=== PATIENT | female | born 1995 | race Caucasian/White ===

== ENCOUNTER 2018-05-07 17:21 | Emergency (ER) | payer BC ==
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
== END 2018-05-07 18:01 | disposition home or self-care (01) ==
LOC: MW.ED 17:21
DX: O9A.213 Injury, poisoning and certain other consequences of external causes complicating pregnancy, third trimester (principal); S10.91XA Abrasion of unspecified part of neck, initial encounter; Y04.8XXA Assault by other bodily force, initial encounter; Z3A.38 38 weeks gestation of pregnancy
CPT/HCPCS: 99284

== ENCOUNTER 2018-05-07 17:52 | Observation (INO) | payer BC ==
[2018-05-07 21:41] LABS: CHLORIDE,CL 104 mmol/L (98-107); SODIUM,NA 137 mmol/L (136-145)
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
[2018-05-07] MEDS ORDERED: Acetaminophen 500 MG Tab PO PRN (23:08)
[2018-05-07] MEDS ORDERED: hydrOXYzine Pamoate 25 MG Cap PO ONE (23:08)
--- NOTE | 2018-05-08 09:59 | PCM.SN ---
- Free Text/Narrative Note: See note in OB [facility]
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
== END 2018-05-08 13:05 | disposition home or self-care (01) ==
LOC: MW.OBCHECK 17:52 → MW.OB 17:56 → MW.OBCHECK 20:37 → MW.OB 21:14
PROVIDERS: ADMIT Obstetrics & Gynecology; ATTEND Obstetrics & Gynecology
DX: O9A.213 Injury, poisoning and certain other consequences of external causes complicating pregnancy, third trimester (principal); T14.90XA Injury, unspecified, initial encounter; O99.89 Other specified diseases and conditions complicating pregnancy, childbirth and the puerperium; N13.30 Unspecified hydronephrosis; O99.613 Diseases of the digestive system complicating pregnancy, third trimester; K82.0 Obstruction of gallbladder; Z3A.37 37 weeks gestation of pregnancy; Y09 Assault by unspecified means; Y04.2XXA Assault by strike against or bumped into by another person, initial encounter
CPT/HCPCS: 36415; 59025; 76700; 76819; 80053; 81003; 85027; 85460; A9270; G0378

== ENCOUNTER 2018-05-25 00:08 | Inpatient (IN) | payer BC ==
[2018-05-25] MEDS ORDERED: Sodium Chloride 0.9% 10 ML Syringe FLUSH PRN (00:43)
[2018-05-25] MEDS ORDERED: Nalbuphine 10 MG/1 ML Vial IVPUSH PRN (00:43)
[2018-05-25] MEDS ORDERED: Lidocaine 1% 50 ML MDV INJECT PRN (00:43)
[2018-05-25] MEDS ORDERED: Terbutaline 1 MG/ML SDV SUBCUT PRN (00:43)
[2018-05-25] MEDS ORDERED: Misoprostol 200 MCG Tab PO PRN (00:43)
[2018-05-25] MEDS ORDERED: Carboprost Tromethamine 250 MCG/1 ML Amp IM PRN (00:43)
[2018-05-25] MEDS ORDERED: Water For Irrigation,Sterile 1,000 ML Container IRR PRN (00:43)
[2018-05-25] MEDS ORDERED: Methylergonovine 0.2 MG/1 ML Amp IM PRN (00:43)
[2018-05-25] MEDS ORDERED: Butorphanol 1 MG/ML SDV IVPUSH PRN (00:43)
[2018-05-25] MEDS ORDERED: Tranexamic Acid 1,000 MG in Sodium Chloride 0.9% 100 ML IV PRN (00:43)
[2018-05-25] MEDS ORDERED: Oxytocin/0.9 % Sodium Chloride 30 UNIT/500 ML BAG IV SCH ×2 (00:45)
[2018-05-25] MEDS: Lactated Ringers 1,000 ML IV SCH ×2 (01:15→11:40)
[2018-05-25] MEDS ORDERED: fentaNYL 100 MCG/2 ML SDV ONE (09:44)
[2018-05-25] MEDS ORDERED: Docusate Sodium 100 MG Cap PO PRN (11:02)
[2018-05-25] MEDS ORDERED: Witch Hazel Medicated Pads 40/Jar TOP PRN (11:02)
[2018-05-25] MEDS ORDERED: Ibuprofen 400 MG Tab PO PRN (11:02)
[2018-05-25] MEDS ORDERED: Bisacodyl 10 MG Supp RECTAL PRN (11:02)
[2018-05-25] MEDS ORDERED: Acetaminophen 500 MG Tab PO PRN ×2 (11:02)
[2018-05-25] MEDS ORDERED: Benzocaine/Menthol 20%-0.5% Spray 78 GM Cannister TOP PRN (11:02)
[2018-05-25] MEDS ORDERED: oxyCODONE 5 MG Tab PO PRN (11:02)
[2018-05-25] MEDS ORDERED: Lanolin 100% Cream 7 GM Tube TOP PRN (11:02)
--- NOTE | 2018-05-25 11:07 | PCM.DEL ---
L & D Note - General Info Date of Service: 05/25/18 Mother's Due Date: 05/28/18 - Delivery Note Labor: Spontaneous Delivery Outcome: Livebirth Presentation: Right Occiput Anterior (AILIN) Nuchal Cord: None Anesthesia Type: Epidural Amniotic Fluid Description: Clear Episiotomy Type: None Laceration: None Placenta: Intact Cord: 3 Vessels Estimated Blood Loss: 300 Resuscitation Needed: No Score 1 min: 9 Score 5 min: 9 Delivery Comments (Free Text/Narrative):: Live male delivered at 1049am , weight 3220g , 9/9 - General Info Date of Service: 05/25/18 - Patient Data Weight - Most Recent: 103.873 kg Lab Results Last 24 Hours: Laboratory Results - last 24 hr 05/25/18 05/25/18 Range/Units 01:00 01:00 WBC 8.99 (4.0-11.0) K/uL RBC 3.82 L (4.30-5.90) M/uL Hgb 10.9 L (12.0-16.0) g/dL Hct 33.4 L (36.0-46.0) % MCV 87.4 (80.0-98.0) fL MCH 28.5 (27.0-32.0) pg MCHC 32.6 (31.0-37.0) g/dL RDW Std Deviation 38.8 (28.0-62.0) fl RDW Coeff of Gage 13 (11.0-15.0) % Plt Count 249 (150-400) K/uL MPV 10.60 (7.40-12.00) fL Blood Type O POSITIVE Antibody Screen NEGATIVE Med Orders - Current: Current Medications Butorphanol Tartrate (Stadol) 1 mg IVPUSH ASDIRECTED PRN PRN Reason: Pain Carboprost Tromethamine (Hemabate Ds) 250 mcg IM ASDIRECTED PRN PRN Reason: Post Hemorrhage Lactated Ringer's (Ringers, Lactated) 1,000 mls @ 150 mls/hr IV ASDIRECTED MORELIA Last Admin: 05/25/18 01:15 Dose: 150 mls/hr Oxytocin/Sodium Chloride (Oxytocin 30 Unit/500 Ml-Ns) 30 unit in 500 mls @ 999 mls/hr IV TITRATE MORELIA Oxytocin/Sodium Chloride (Oxytocin 30 Unit/500 Ml-Ns) 30 unit in 500 mls @ 2 mls/hr IV TITRATE MORELIA; Protocol Last Titration: 05/25/18 09:12 Dose: 8 munits/min, 8 mls/hr Tranexamic Acid 1,000 mg/ (Sodium Chloride) 110 mls @ 660 mls/hr IV ONETIME PRN PRN Reason: Bleeding Lidocaine HCl (Xylocaine 1%) 50 ml INJECT ONETIME PRN PRN Reason: Laceration repair Methylergonovine Maleate (Methergine) 0.2 mg IM ASDIRECTED PRN PRN Reason: Post Hemorrhage Misoprostol (Cytotec) 200 mcg PO ONETIME PRN PRN Reason: Post Hemorrhage Nalbuphine HCl (Nubain) 10 mg IVPUSH ASDIRECTED PRN PRN Reason: Pain (severe 7-10) Sodium Chloride (Saline Flush) 10 ml FLUSH ASDIRECTED PRN PRN Reason: Keep Vein Open Last Admin: 05/25/18 01:23 Dose: 10 ml Sterile Water (Sterile Water For Irrigation) 1,000 ml IRR ASDIRECTED PRN PRN Reason: delivery Terbutaline Sulfate (Brethine) 0.25 mg SUBCUT ASDIRECTED PRN PRN Reason: Tacysystole Discontinued Medications Fentanyl (Sublimaze) Confirm Administered Dose 100 mcg .ROUTE .STK-MED ONE Stop: 05/25/18 09:45 Fentanyl/Bupivacaine HCl (Nbjxeezd-Cogsw-Xj 2 Mcg/Ml-0.125%) Confirm Administered Dose 100 mls @ as directed .ROUTE .STK-MED ONE Stop: 05/25/18 09:45 - Problem List & Annotations (1) Vaginal delivery SNOMED Code(s): 197016314 Code(s): O80 - ENCOUNTER FOR FULL-TERM UNCOMPLICATED DELIVERY Status: Acute Current Visit: Yes - Problem List Review Problem List Initiated/Reviewed/Updated: Yes - My Orders Last 24 Hours: My Active Orders 05/25/18 00:43 Patient Status [ADT] Routine Bedrest Bathroom Privileges [RC] ASDIRECTED Communication Order [RC] ASDIRECTED Communication Order [RC] ASDIRECTED Heart Tones [RC] CONTINUOUS Non Stress Test [RC] PER UNIT ROUTINE May Shower [RC] ASDIRECTED Notify Provider [RC] PRN Notify Provider [RC] PRN Notify Provider [RC] STAT Oxygen Therapy [RC] ASDIRECTED Up ad Kiki [RC] ASDIRECTED Vaginal Exam [RC] PRN Vaginal Exam [RC] PRN Vital Signs [RC] PER UNIT ROUTINE Vital Signs [RC] PER UNIT ROUTINE Butorphanol [Stadol] 1 mg IVPUSH ASDIRECTED PRN Carboprost Tromethamine [Hemabate DS] 250 mcg IM ASDIRECTED PRN Lidocaine 1% [Xylocaine 1%] 50 ml INJECT ONETIME PRN Methylergonovine [Methergine] 0.2 mg IM ASDIRECTED PRN Nalbuphine [Nubain] 10 mg IVPUSH ASDIRECTED PRN Sodium Chloride 0.9% [Saline Flush] 10 ml FLUSH ASDIRECTED PRN Terbutaline [Brethine] 0.25 mg SUBCUT ASDIRECTED PRN Tranexamic Acid [Cyklokapron] 1,000 mg Sodium Chloride 0.9% [Normal Saline] 100 ml IV ONETIME Water For Irrigation,Sterile [Sterile Water for Irrigation] 1,000 ml IRR ASDIRECTED PRN miSOPROStol [Cytotec] 200 mcg PO ONETIME PRN Scalp Electrode [WOMSER] Per Unit Routine Peripheral IV Insertion Adult [OM.PC] Routine 05/25/18 00:45 Lactated Ringers [Ringers, Lactated] 1,000 ml IV ASDIRECTED Oxytocin/0.9 % Sodium Chloride [Oxytocin 30 Unit/500 ML-NS] 30 unit in 500 ml IV TITRATE Oxytocin/0.9 % Sodium Chloride [Oxytocin 30 Unit/500 ML-NS] 30 unit in 500 ml IV TITRATE Medication Administration Instruction [OM.PC] Q3H 05/25/18 11:02 Acetaminophen [Tylenol Extra Strength] 1,000 mg PO Q4H PRN Acetaminophen [Tylenol Extra Strength] 500 mg PO Q4H PRN Benzocaine/Menthol [Dermoplast Pain Relief 20%-0.5% [place]] 78 gm TOP ASDIRECTED PRN Bisacodyl [Dulcolax] 10 mg RECTAL ONETIME PRN Docusate Sodium [Colace] 100 mg PO BID PRN Ibuprofen [Motrin] 400 mg PO Q4H PRN Ibuprofen [Motrin] 800 mg PO Q6H PRN Lanolin [Lansinoh HPA] See Dose Instructions TOP ASDIRECTED PRN Ryanmeg Michelle [Tucks] 1 pad TOP ASDIRECTED PRN oxyCODONE 5 mg PO Q2H PRN 05/25/18 11:03 Patient Status [ADT] Routine May Shower [RC] ASDIRECTED Up ad Kiki [RC] ASDIRECTED Vital Signs [RC] PER UNIT ROUTINE Assess Lochia [WOMSER] Per Unit Routine Assess Uterine Involution [WOMSER] Per Unit Routine Peripheral IV Discontinue [OM.PC] Routine 05/25/18 Breakfast Clear Liquid Diet [DIET] 05/26/18 05:11 HEMOGLOBIN/HEMATOCRIT,HH [HEME] Timed
[2018-05-25] MEDS: Ibuprofen 800 MG Tab PO PRN ×2 (11:33→18:35)
--- NOTE | 2018-05-25 13:08 | PCM.PREANE ---
Preanesthetic Assessment - Anesthesia/Transfusion/Family Hx Anesthesia History: No Prior Anesthesia Family History of Anesthesia Reaction: No Transfusion History: No Prior Transfusion(s) Intubation History: Unknown - Review of Systems General: No Symptoms Pulmonary: No Symptoms Cardiovascular: No Symptoms Gastrointestinal: No Symptoms Neurological: No Symptoms Other: Reports: None - Physical Assessment Height: 1.68 m Weight: 103.873 kg ASA Class: 2 Mental Status: Alert & Oriented x3 Airway Class: Mallampati = 2 Dentition: Reports: Normal Dentition Thyro-Mental Finger Breadths: 3 Mouth Opening Finger Breadths: 3 ROM/Head Extension: Full Lungs: Clear to Auscultation, Normal Respiratory Effort Cardiovascular: Regular Rate, Regular Rhythm - Lab Values: Laboratory Last Values WBC 8.99 K/uL (4.0-11.0) 05/25/18 01:00 RBC 3.82 M/uL (4.30-5.90) L 05/25/18 01:00 Hgb 10.9 g/dL (12.0-16.0) L 05/25/18 01:00 Hct 33.4 % (36.0-46.0) L 05/25/18 01:00 MCV 87.4 fL (80.0-98.0) 05/25/18 01:00 MCH 28.5 pg (27.0-32.0) 05/25/18 01:00 MCHC 32.6 g/dL (31.0-37.0) 05/25/18 01:00 RDW Std Deviation 38.8 fl (28.0-62.0) 05/25/18 01:00 RDW Coeff of Gage 13 % (11.0-15.0) 05/25/18 01:00 Plt Count 249 K/uL (150-400) 05/25/18 01:00 MPV 10.60 fL (7.40-12.00) 05/25/18 01:00 Blood Type O POSITIVE 05/25/18 01:00 Antibody Screen NEGATIVE 05/25/18 01:00 - Allergies Allergies/Adverse Reactions: Allergies Allergy/AdvReac Type Severity Reaction Status Date / Time No Known Allergies Allergy Verified 05/07/18 17:32 - Blood Blood Available: No - Anesthesia Plan Pre-Op Medication Ordered: None - Acknowledgements Anesthesia Type Planned: Epidural Pt an Appropriate Candidate for the Planned Anesthesia: Yes Alternatives and Risks of Anesthesia Discussed w Pt/Guardian: Yes Pt/Guardian Understands and Agrees with Anesthesia Plan: Yes PreAnesthesia Questionnaire - Past Health History Medical/Surgical History: Denies 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: - Infectious Disease History Infectious Disease History: Reports: Chicken Pox - SUBSTANCE USE Smoking Status *Q: Never Smoker Tobacco Use Within Last Twelve Months: No Second Hand Smoke Exposure: No Recreational Drug Use History: No - HOME MEDS Home Medications: Home Meds Vits #93/Iron Fum/FA [ Formula Tablet] 1 each PO DAILY [History] - CURRENT (IN HOUSE) MEDS Current Meds: Current Medications Acetaminophen (Tylenol Extra Strength) 500 mg PO Q4H PRN PRN Reason: Pain Acetaminophen (Tylenol Extra Strength) 1,000 mg PO Q4H PRN PRN Reason: Pain Benzocaine/Menthol (Dermoplast Pain Relief 20%-0.5% [place]) 78 gm TOP ASDIRECTED PRN PRN Reason: Perineal Comfort Measure Bisacodyl (Dulcolax) 10 mg RECTAL ONETIME PRN PRN Reason: Constipation Butorphanol Tartrate (Stadol) 1 mg IVPUSH ASDIRECTED PRN PRN Reason: Pain Carboprost Tromethamine (Hemabate Ds) 250 mcg IM ASDIRECTED PRN PRN Reason: Post Hemorrhage Docusate Sodium (Colace) 100 mg PO BID PRN PRN Reason: Constipation Emollient Ointment (Lansinoh Hpa) 0 gm TOP ASDIRECTED PRN PRN Reason: Sore Nipples Lactated Ringer's (Ringers, Lactated) 1,000 mls @ 150 mls/hr IV ASDIRECTED MORELIA Last Admin: 05/25/18 11:40 Dose: 150 mls/hr Oxytocin/Sodium Chloride (Oxytocin 30 Unit/500 Ml-Ns) 30 unit in 500 mls @ 999 mls/hr IV TITRATE [facility] Last Admin: 05/25/18 11:38 Dose: 999 mls/hr Oxytocin/Sodium Chloride (Oxytocin 30 Unit/500 Ml-Ns) 30 unit in 500 mls @ 2 mls/hr IV TITRATE [facility]; Protocol Last Titration: 05/25/18 10:49 Dose: 0 munits/min, 0 mls/hr Tranexamic Acid 1,000 mg/ (Sodium Chloride) 110 mls @ 660 mls/hr IV ONETIME PRN PRN Reason: Bleeding Ibuprofen (Motrin) 400 mg PO Q4H PRN PRN Reason: Pain Ibuprofen (Motrin) 800 mg PO Q6H PRN PRN Reason: Pain Last Admin: 05/25/18 11:33 Dose: 800 mg Lidocaine HCl (Xylocaine 1%) 50 ml INJECT ONETIME PRN PRN Reason: Laceration repair Methylergonovine Maleate (Methergine) 0.2 mg IM ASDIRECTED PRN PRN Reason: Post Hemorrhage Misoprostol (Cytotec) 200 mcg PO ONETIME PRN PRN Reason: Post Hemorrhage Nalbuphine HCl (Nubain) 10 mg IVPUSH ASDIRECTED PRN PRN Reason: Pain (severe 7-10) Oxycodone HCl (Oxycodone) 5 mg PO Q2H PRN PRN Reason: Pain Sodium Chloride (Saline Flush) 10 ml FLUSH ASDIRECTED PRN PRN Reason: Keep Vein Open Last Admin: 05/25/18 01:23 Dose: 10 ml Sterile Water (Sterile Water For Irrigation) 1,000 ml IRR ASDIRECTED PRN PRN Reason: delivery Terbutaline Sulfate (Brethine) 0.25 mg SUBCUT ASDIRECTED PRN PRN Reason: Tacysystole Witch Michelle (Tucks) 1 pad TOP ASDIRECTED PRN PRN Reason: comfort care Discontinued Medications Fentanyl (Sublimaze) Confirm Administered Dose 100 mcg .ROUTE .STK-MED ONE Stop: 05/25/18 09:45 Fentanyl/Bupivacaine HCl (Rxpqakza-Hfxho-Rg 2 Mcg/Ml-0.125%) Confirm Administered Dose 100 mls @ as directed .ROUTE .STK-MED ONE Stop: 05/25/18 09:45
[2018-05-26] MEDS: Ibuprofen 800 MG Tab PO PRN (04:24)
--- NOTE | 2018-05-26 07:13 | PCM.PNPP ---
- General Info Date of Service: 05/26/18 Subjective Update: 23 yo s/p , stable PPD 1 Functional Status: Reports: Pain Controlled, Tolerating Diet, Ambulating, Urinating - Review of Systems General: Reports: No Symptoms HEENT: Reports: No Symptoms Pulmonary: Reports: No Symptoms Cardiovascular: Reports: No Symptoms Gastrointestinal: Reports: No Symptoms Genitourinary: Reports: No Symptoms Musculoskeletal: Reports: No Symptoms Skin: Reports: No Symptoms Neurological: Reports: No Symptoms Psychiatric: Reports: No Symptoms - General Info Date of Service: 05/26/18 - Patient Data Vital Signs - Most Recent: Last Vital Signs Temp 36.8 C 05/26/18 06:05 Pulse 87 05/26/18 06:05 Resp 16 05/26/18 06:05 BP 121/69 05/26/18 06:05 Pulse Ox 97 05/26/18 06:05 Weight - Most Recent: 103.873 kg Lab Results - Last 24 Hours: Laboratory Results - last 24 hr 05/26/18 Range/Units 04:50 Hgb 11.1 L (12.0-16.0) g/dL Hct 34.2 L (36.0-46.0) % Med Orders - Current: Current Medications Acetaminophen (Tylenol Extra Strength) 500 mg PO Q4H PRN PRN Reason: Pain Acetaminophen (Tylenol Extra Strength) 1,000 mg PO Q4H PRN PRN Reason: Pain Benzocaine/Menthol (Dermoplast Pain Relief 20%-0.5% [place]) 78 gm TOP ASDIRECTED PRN PRN Reason: Perineal Comfort Measure Bisacodyl (Dulcolax) 10 mg RECTAL ONETIME PRN PRN Reason: Constipation Butorphanol Tartrate (Stadol) 1 mg IVPUSH ASDIRECTED PRN PRN Reason: Pain Carboprost Tromethamine (Hemabate Ds) 250 mcg IM ASDIRECTED PRN PRN Reason: Post Hemorrhage Docusate Sodium (Colace) 100 mg PO BID PRN PRN Reason: Constipation Emollient Ointment (Lansinoh Hpa) 0 gm TOP ASDIRECTED PRN PRN Reason: Sore Nipples Lactated Ringer's (Ringers, Lactated) 1,000 mls @ 150 mls/hr IV ASDIRECTED MORELIA Last Admin: 05/25/18 11:40 Dose: 150 mls/hr Oxytocin/Sodium Chloride (Oxytocin 30 Unit/500 Ml-Ns) 30 unit in 500 mls @ 999 mls/hr IV TITRATE MORELIA Last Admin: 05/25/18 11:38 Dose: 999 mls/hr Oxytocin/Sodium Chloride (Oxytocin 30 Unit/500 Ml-Ns) 30 unit in 500 mls @ 2 mls/hr IV TITRATE MORELIA; Protocol Last Titration: 05/25/18 10:49 Dose: 0 munits/min, 0 mls/hr Tranexamic Acid 1,000 mg/ (Sodium Chloride) 110 mls @ 660 mls/hr IV ONETIME PRN PRN Reason: Bleeding Ibuprofen (Motrin) 400 mg PO Q4H PRN PRN Reason: Pain Ibuprofen (Motrin) 800 mg PO Q6H PRN PRN Reason: Pain Last Admin: 05/26/18 04:24 Dose: 800 mg Lidocaine HCl (Xylocaine 1%) 50 ml INJECT ONETIME PRN PRN Reason: Laceration repair Methylergonovine Maleate (Methergine) 0.2 mg IM ASDIRECTED PRN PRN Reason: Post Hemorrhage Misoprostol (Cytotec) 200 mcg PO ONETIME PRN PRN Reason: Post Hemorrhage Nalbuphine HCl (Nubain) 10 mg IVPUSH ASDIRECTED PRN PRN Reason: Pain (severe 7-10) Oxycodone HCl (Oxycodone) 5 mg PO Q2H PRN PRN Reason: Pain Sodium Chloride (Saline Flush) 10 ml FLUSH ASDIRECTED PRN PRN Reason: Keep Vein Open Last Admin: 05/25/18 01:23 Dose: 10 ml Sterile Water (Sterile Water For Irrigation) 1,000 ml IRR ASDIRECTED PRN PRN Reason: delivery Terbutaline Sulfate (Brethine) 0.25 mg SUBCUT ASDIRECTED PRN PRN Reason: Tacysystole Witch Michelle (Tucks) 1 pad TOP ASDIRECTED PRN PRN Reason: comfort care Discontinued Medications Fentanyl (Sublimaze) Confirm Administered Dose 100 mcg .ROUTE .STK-MED ONE Stop: 05/25/18 09:45 Last Admin: 05/25/18 18:37 Dose: Not Given Fentanyl/Bupivacaine HCl (Ilxamzkl-Otlyw-So 2 Mcg/Ml-0.125%) Confirm Administered Dose 100 mls @ as directed .ROUTE .STK-MED ONE Stop: 05/25/18 09:45 Last Admin: 05/25/18 18:37 Dose: Not Given - Infant Interaction Support Person: Mother - Recovery Exam Fundal Tone: Firm Fundal Level: At Umbilicus Fundal Placement: Midline Lochia Amount: Scant Lochia Color: Rubra/Red Perineum Description: Intact, Minimal Bruising/Swelling Episiotomy/Laceration: None Bladder Status: Voiding - Exam General: Alert HEENT: Pupils Equal Neck: Supple Lungs: Clear to Auscultation Cardiovascular: Regular Rate, Regular Rhythm GI/Abdominal Exam: Normal Bowel Sounds Extremities: Normal Inspection Neurological: No New Focal Deficit - Problem List & Annotations (1) Vaginal delivery SNOMED Code(s): 323391086 Code(s): O80 - ENCOUNTER FOR FULL-TERM UNCOMPLICATED DELIVERY Status: Acute Current Visit: Yes - Problem List Review Problem List Initiated/Reviewed/Updated: Yes - My Orders Last 24 Hours: My Active Orders 05/25/18 11:02 Acetaminophen [Tylenol Extra Strength] 1,000 mg PO Q4H PRN Acetaminophen [Tylenol Extra Strength] 500 mg PO Q4H PRN Benzocaine/Menthol [Dermoplast Pain Relief 20%-0.5% [place]] 78 gm TOP ASDIRECTED PRN Bisacodyl [Dulcolax] 10 mg RECTAL ONETIME PRN Docusate Sodium [Colace] 100 mg PO BID PRN Ibuprofen [Motrin] 400 mg PO Q4H PRN Ibuprofen [Motrin] 800 mg PO Q6H PRN Lanolin [Lansinoh HPA] See Dose Instructions TOP ASDIRECTED PRN Witch Michelle [Tucks] 1 pad TOP ASDIRECTED PRN oxyCODONE 5 mg PO Q2H PRN 05/25/18 11:03 Patient Status [ADT] Routine May Shower [RC] ASDIRECTED Up ad Kiki [RC] ASDIRECTED Vital Signs [RC] PER UNIT ROUTINE Assess Lochia [WOMSER] Per Unit Routine Assess Uterine Involution [WOMSER] Per Unit Routine Peripheral IV Discontinue [OM.PC] Routine 05/25/18 Lunch Regular Diet [DIET] - Assessment Assessment:: 23 yo s/p PPD 1 , stable , minimal lochia - Plan Plan:: Discharge home today
--- NOTE | 2018-05-26 12:35 | OR ---
SURGEON: LORI DE LA CRUZ PREOPERATIVE DIAGNOSES: A 23-year-old G3, P2, at 39 weeks and 4 days, admitted for induction of labor for distance, group B Streptococcus negative. POSTOPERATIVE DIAGNOSES: A 23-year-old G3, P2, at 39 weeks and 4 days, admitted for induction of labor for distance, group B Streptococcus negative. PROCEDURE: Normal spontaneous vaginal delivery. ESTIMATED BLOOD LOSS: 200. ANESTHESIA: Epidural. FINDINGS: Notable finding was a live male , delivered at 10:49 a.m. scores of 9 and 9. Weight is 3220 g. BRIEF HISTORY ABOUT THE PATIENT: She is a 23-year-old G3, P3, at 39 weeks and 4 days who was admitted for induction of labor for distance, and she came, she was about 2 cm dilated. She was started on Pitocin. She made adequate change, became fully dilated. She had a normal labor course. PROCEDURE With the patient being fully dilated, she was encouraged to push. With good pushing effort, she delivered the head, followed subsequently by the anterior and posterior shoulder, then the of the body was delivered. Delayed cord clamping was observed. The cord was clamped and cut. The placenta was delivered via controlled cord traction. The perineum was inspected and noted to be intact. All instrument and pad counts were correct x2. The infant was left with mother in stable condition. IQRA HARE /[id number] MTDD
--- NOTE | 2018-05-26 17:49 | PCM48HPAN ---
Post Anesthesia Note - EVALUATION WITHIN 48HRS OF ANESTHETIC Vital Signs in Normal Range: Yes Patient Participated in Evaluation: Yes Respiratory Function Stable: Yes Airway Patent: Yes Cardiovascular Function Stable: Yes Hydration Status Stable: Yes Pain Control Satisfactory: Yes Nausea and Vomiting Control Satisfactory: Yes Mental Status Recovered: Yes Resp Rate: 17 - COMMENTS/OBSERVATIONS Free Text/Narrative:: Pt packing up to leave. No apparent anesthesia complications.
== END 2018-05-26 14:20 | disposition home or self-care (01) | DRG 560 ==
LOC: MW.OBCHECK 00:08 → MW.OB 00:10 → MW.OBCHECK 00:43 → MW.OB 00:43 → OBSVTOIN 10:49 → MW.OB 14:09
PROVIDERS: ADMIT Obstetrics & Gynecology; ATTEND Obstetrics & Gynecology
PROC: 10E0XZZ Delivery of Products of Conception, External Approach (ICD-10-PCS; principal; 2018-05-25)
PROC: 3E033VJ Introduction of Other Hormone into Peripheral Vein, Percutaneous Approach (ICD-10-PCS; principal; 2018-05-25)
PROC: 3E0R3BZ Introduction of Anesthetic Agent into Spinal Canal, Percutaneous Approach (ICD-10-PCS; 2018-05-25)
PROC: 00HU33Z Insertion of Infusion Device into Spinal Canal, Percutaneous Approach (ICD-10-PCS; 2018-05-25)
DX: O80 Encounter for full-term uncomplicated delivery (principal); Z3A.39 39 weeks gestation of pregnancy; Z37.0 Single live birth
CPT/HCPCS: 36415; 51702; 59025; 59409; 85014; 85018; 85027; 86850; 86900; 86901; A9270-GY; J2590; J3010; J7120